=== PATIENT | female | born 1985 | race African-American/Black ===

== ENCOUNTER 2020-06-03 21:44 | Emergency (ER) | payer BC ==
[2020-06-03] MEDS ORDERED: Ketorolac Tromethamine 30 MG/ML VIAL ONE (22:36)
== END 2020-06-03 22:43 | disposition home or self-care (01) ==
LOC: ERS 21:44
DX: R22.32 Localized swelling, mass and lump, left upper limb (principal); F41.9 Anxiety disorder, unspecified; Z87.891 Personal history of nicotine dependence; Z79.899 Other long term (current) drug therapy
CPT/HCPCS: 96372; 99283; J1885